=== PATIENT | female | born 1950 | race American Indian/Alaskan Native ===

== ENCOUNTER 2017-02-04 08:34 | Outpatient (CLI) | payer MEDICARE ==
--- NOTE | 2017-02-04 14:38 | Mammography Report ---
BILATERAL DIGITAL SCREENING MAMMOGRAM with CAD: 02/04/17 08:34:00 CLINICAL: Routine screening. COMPARISON: 08/16/14 FINDINGS: There are a few bilateral scattered areas of fibroglandular density.No mass, architectural distortion or suspicious calcifications. IMPRESSION: No mammographic evidence of malignancy. BI-RADS CATEGORY: 1 -- Negative RECOMMENDATION: Routine mammographic screening in one year. COMMENT: Patient follow-up letters are generated by our [employer] application.
== END 2017-02-04 08:35 | disposition home or self-care (01) ==
LOC: SPVWC 08:34
PROVIDERS: ATTEND Hospitalist
DX: Z12.31 Encounter for screening mammogram for malignant neoplasm of breast (principal)
CPT/HCPCS: 77067; G0202

== ENCOUNTER 2017-08-01 08:00 | Emergency (ER) | payer MEDICARE ==
[2017-08-01 08:05] VITALS: BP 128/55
--- NOTE | 2017-08-01 08:26 | Emergency Department Report ---
ED Back Pain/Injury HPI - General Chief Complaint: Back Pain/Injury Stated Complaint: BACK/LEG/FOOT PAIN Time Seen by Provider: 08/01/17 08:09 Source: patient Limitations: No Limitations - History of Present Illness Initial Comments: This is a 67 y.o. female that presents with low back pain for 2 days and chronic feet pain. Patient reports back pain started 2-3 days ago and is non- radiating. She is having dysuria along with back pain and started taking AZO to help with no improvement of symptoms. She went to PCP 06/08/2017 and was told to watch A1c. They talked about improving diet but they never told her if she have diabetes or not. She is worried foot pain is associated with diabetes because the pain is increased over the past week. She is soaking feet daily in epson salt, which relieve pain but it always return. Describes foot pain as numbness not sharp or dull pain. The pain is worse in the morning and on the plantar area of both feet. When she wake up in the morning she have to shake legs and sit for 2-3 minutes prior to standing. She is taking her ibuprofen 800 mg pills with minimal improvement of pain. Denies swelling, redness, falls/ injury, frequency, urgency, or discharge. MD Complaint: back pain -: days(s) (2 days for low back pain), week(s) (1 week) Similar Symptoms Previously: Yes (low back pain and dysuria for UTI, years ago) Place: home Radiation: none Severity: moderate Severity scale (0 -10): 6 Quality: burning (with voids), tingling (both feet) Consistency: intermittent Improves With: immobilization Worsens With: movement, walking Associated Symptoms: difficulty walking. denies: confusion, weakness, chest pain, numbness, cough, difficulty urinating, diaphoresis, incontinence, fever/ chills, constipation, headaches, abdominal pain, loss of appetite, malaise, nausea/vomiting, rash, seizure, shortness of breath, syncope Treatments Prior to Arrival: NSAIDS (She is taking ibuprofen 800 mg) - Related Data Previous Rx's Medication Instructions Recorded Last Taken Type Phenazopyridine [Pyridium] 200 mg PO TID 2 Days #6 tab 08/01/17 Unknown Rx Sulfamethoxazole/Trimethoprim 1 each PO BID 3 Days #6 tablet 08/01/17 Unknown Rx [Bactrim DS TAB] traMADol [Ultram 50 MG tab] 50 mg PO Q6HR PRN #20 tablet 08/01/17 Unknown Rx Allergies Allergy/AdvReac Type Severity Reaction Status Date / Time No Known Allergies Allergy Unverified 08/01/17 08:01 ED Review of Systems ROS: Stated complaint: BACK/LEG/FOOT PAIN Other details as noted in HPI Constitutional: denies: chills, fever Respiratory: denies: cough, orthopnea, shortness of breath, wheezing Cardiovascular: denies: chest pain, palpitations, edema, syncope Endocrine: no symptoms reported Gastrointestinal: denies: abdominal pain, nausea, diarrhea Genitourinary: dysuria. denies: urgency, frequency, hematuria, discharge Musculoskeletal: back pain (low back pain, bilaterally). denies: joint swelling , arthralgia Neurological: numbness (both feet). denies: headache, weakness, paresthesias, abnormal gait Psychiatric: denies: anxiety, depression ED Past Medical Hx - Past Medical History high cholesterol ED Back Pain Physical Exam - Exam General: Vital signs noted. No distress. Alert and acting appropriately. Back/Abdomen: Yes Flank Tenderness (CVA tenderness bilaterally), No Abdominal Tenderness, No Perithoracic Tenderness, No Perilumbar Tenderness, No Sacroiliac Tenderness, No Straight Leg Raise Pain Neuro: Yes Normal Sensation, Yes Normal DTR's, Yes Normal Gait, No Motor Weakness ED Course Vital Signs 08/01/17 08:01 Temperature 98.3 F Pulse Rate 82 Respiratory 16 Rate Blood Pressure 128/55 O2 Sat by Pulse 98 Oximetry Ed Back Pain Tests - Tests Tests: Abnormal UA (positve nitrates, WBC 11.0) ED Medical Decision Making - Lab Data Result diagrams: 08/01/17 08:56 08/01/17 08:56 - Medical Decision Making This is a 67 y.o. female that presents with bilateral low back pain for 2 days and numbness to feet for 1 week. Patient was examined by me. Obtained CBC, CMP, TSH, CRP, & UA. UA positive for acute cystitis. All other labs WNL, pending TSH. Discussed results with patient. F/U with PCP for further evaluation of neuropathy. Start tramadal 50 mg po q6h PRN for neuropathy, bactrim DS 1 tab po bid x 3 days, pyridium. Discharged home in stable condition. Critical care attestation.: If time is entered above; I have spent that time in minutes in the direct care of this critically ill patient, excluding procedure time. ED Disposition Clinical Impression: Acute cystitis with hematuria, Neuropathy Disposition: TO HOME OR SELFCARE Is pt being admited?: No Does the pt Need Aspirin: No Condition: Stable Instructions: Urinary Tract Infection in Women (ED), Dysuria (ED), Paresthesia (ED) Additional Instructions: Avoid drinking alcohol for 24 hours after completion of medication. Increase fluid intake to aid in flushing kidneys. Follow up with primary care provider in 2-3 days for management of neuropathy. Prescriptions: Phenazopyridine [Pyridium] 200 mg PO TID 2 Days #6 tab Sulfamethoxazole/Trimethoprim [Bactrim DS TAB] 1 each PO BID 3 Days #6 tablet traMADol [Ultram 50 MG tab] 50 mg PO Q6HR PRN #20 tablet PRN Reason: Pain Referrals: TYRA OWENS MD [Referring] - 3-5 Days [facility] [Provider Group] - 3-5 Days [facility] [Provider Group] - 3-5 Days Time of Disposition: 10:45 Print Language: GREEK
[2017-08-01 09:06] LABS: Hematocrit 37.7 % (30.3-42.9); Hemoglobin 12.8 gm/dl (10.1-14.3); Mean Corpuscular HGB Conc 34 % (30-34); Mean Corpuscular Hemoglobin 30 pg (28-32); Mean Corpuscular Volume 87 fl (79-97); Platelet Count 192 K/mm3 (140-440); Red Blood Count 4.31 M/mm3 (3.65-5.03); Red Cell Distribution Width 14.4 % (13.2-15.2)
[2017-08-01 09:25] LABS: Bacteria,Urine 4+ /HPF (Negative); Bilirubin,Urine NEG (Negative); Blood,Urine MOD (Negative); Color,Urine Red (Yellow); Mucus,Urine FEW /HPF; Protein,Urine <15 mg/dL mg/dL (Negative)
[2017-08-01 09:36] LABS: Albumin 4.3 g/dL (3.9-5); C-Reactive Protein 0.6 mg/dL (0.00-1.30); Calcium 9.2 mg/dL (8.4-10.2)
[2017-08-01 09:36] LABS: RBC,Urine > 182.0 /HPF (0.0-6.0)
== END 2017-08-01 10:51 | disposition home or self-care (01) ==
LOC: ED 08:00
DX: N30.01 Acute cystitis with hematuria (principal); G62.9 Polyneuropathy, unspecified; E78.00 Pure hypercholesterolemia, unspecified
CPT/HCPCS: 36415; 80053; 81001; 82607; 84443; 85027; 86140; 99283

== ENCOUNTER 2018-11-23 05:53 | Day surgery (SDC) | payer MEDICARE, OTHER ==
[2018-11-23] MEDS ORDERED: NACL 0.9% 500 ML 500 ML IV SCH (07:00)
[2018-11-23 07:08] LABS: Basophils # (Auto) 0.1 K/mm3 (0.0-0.1); Basophils % (Auto) 0.9 % (0.0-1.8); Eosinophils # (Auto) 0.5 K/mm3 (0.0-0.4); Eosinophils % (Auto) 7.4 % (0.0-4.3); Hematocrit 37.1 % (30.3-42.9); Hemoglobin 12.6 gm/dl (10.1-14.3); Lymphocytes # (Auto) 2.4 K/mm3 (1.2-5.4); Lymphocytes % (Auto) 34.4 % (13.4-35.0); Mean Corpuscular HGB Conc 34 % (30-34); Mean Corpuscular Volume 87 fl (79-97); Monocytes # (Auto) 0.5 K/mm3 (0.0-0.8); Monocytes % (Auto) 6.8 % (0.0-7.3); Platelet Count 177 K/mm3 (140-440); Red Blood Count 4.27 M/mm3 (3.65-5.03); Red Cell Distribution Width 14.3 % (13.2-15.2)
[2018-11-23 07:19] LABS: INR 1.08 (0.87-1.13)
[2018-11-23 07:20] LABS: BUN/Creatinine Ratio 12; Blood Urea Nitrogen 12 mg/dL (7-17); Calcium 9.3 mg/dL (8.4-10.2); Hemolysis Index 2
[2018-11-23] MEDS ORDERED: HEPARIN 10,000 UNITS/10 ML ONE (08:20)
[2018-11-23] MEDS ORDERED: HEPARIN/NS 5000 UNIT/500ML(CATH LAB) 1,000 ML IR ONE (08:20)
[2018-11-23] MEDS ORDERED: SUBLIMAZE ONE (08:21)
[2018-11-23] MEDS ORDERED: NITROGLYCERIN SYRINGE 3 ML ONE (08:21)
[2018-11-23] MEDS ORDERED: VERSED ONE (08:21)
[2018-11-23] MEDS ORDERED: XYLOCAINE 2% INFILTRATI ONE (08:21)
[2018-11-23] MEDS ORDERED: CALAN ONE (08:21)
--- NOTE | 2018-11-23 11:33 | Cardiac Catherization Report ---
REFERRING PHYSICIAN: Dr. Ragsdale. INDICATIONS: Left heart catheterization. The patient is a pleasant 68-year-old female with multiple risk factors including previous CAD and PCI, presents here for left heart catheterization due to abnormal stress test and symptoms, on antianginal medications. Risks, benefits and alternatives were discussed at length prior to obtaining informed consent. PROCEDURE IN DETAIL: The patient was brought to the labor relations manager in a postabsorptive state, prepped and draped in sterile fashion. A 2 mL of 2% lidocaine used to anesthetize the right wrist. A standard 6-Pashto hydrophilic sheath used to cannulate the right radial artery via modified Seldinger technique. All exchanges performed to exchange a J-tip guidewire. JL3.5 catheter used to engage the left main. No dampening or ventricularization. Cineangiography performed in multiple projections. JR4 catheter used to cross the aortic valve under fluoroscopic guidance. Left ventriculography performed in 30 CHAVEZ and 30 SETSWANA projections via hand injections, catheter flushed. Manual pullback performed with continuous pressure monitoring. Catheter used to engage the right coronary. No dampening or ventricularization. Cineangiography performed in multiple projections. JR4 catheter was used to cross the aortic valve under fluoroscopic guidance. Left ventriculography performed in 30 CHAVEZ and 30 SETSWANA projections via hand injections, catheter flushed. Manual pullback performed with continuous pressure monitoring. Catheter used to engage the right coronary. No dampening or ventricularization. Cineangiography performed in multiple projections. Next, catheter removed from the body of wire, sheath removed. Manual pressure used to achieve hemostasis. I directly supervised the administration of moderate sedation with Versed and fentanyl from 8:44-9:05 a.m. There were no immediate complications identified. DATA: The patient remained in normal sinus rhythm throughout the procedure. Aortic pressure is 140/80, LV pressure is 140. LVP of 18 mmHg. Left ventriculography reveals normal systolic performance with estimated ejection fraction of 55-60%. No evidence of aortic stenosis. CORONARY ANATOMY: It is a right dominant system. Right coronary is a moderate-sized vessel, courses AV groove, distally bifurcates in the posterior and posterolateral branches. No discrete stenosis noted. There is a stent in the mid right coronary. It is patent with minimal in-stent restenosis. Left main without significant disease, bifurcates left anterior descending and left circumflex. Left circumflex is moderate-sized vessel, courses AV groove. No significant disease identified. Scattered luminal irregularities. LAD is a moderate-sized vessel, courses anterior intergroove, wraps around the apex, scattered luminal irregularities, but no significant disease noted. CONCLUSIONS: 1. No angiographic evidence of significant epicardial coronary disease in this right dominant system. A. Patent mid right coronary stent with minimal in-stent restenosis. 2. Normal left ventricular systolic performance with estimated ejection fraction of 55-60%. 3. No evidence of aortic stenosis. 4. Normal LVEDP. Recommend risk factor modification. Primary and secondary prevention measures. Standard radial care. Follow up with Dr. Ragsdale in the office. Results of procedure explained in length to the patient and family. All questions and concerns were addressed. JOB# [id number] TRUDY/ARABELLA
[2018-11-23 12:30] VITALS: BP 131/76
--- NOTE | 2018-11-23 13:52 | Short Stay Summary ---
Short Stay Documentation Date of service: 11/23/18 - History H&P: obtained from office - Allergies and Medications Current Medications: Allergies No Known Allergies Allergy (Unverified 08/01/17 08:01) Home Medications Medication Instructions Recorded Confirmed Last Taken Type ALBUTEROL Inhaler (OR & NICU) 2 puff IH PRN PRN 11/23/18 11/23/18 Unknown History [ProAir HFA Inhaler] Aspirin [Adult Aspirin] 81 mg PO DAILY 11/23/18 11/23/18 11/23/18 06:30 History 81mg Losartan [Cozaar] 100 mg PO QDAY 11/23/18 11/23/18 11/23/18 06:30 History 100mg Metoprolol [Lopressor TAB] 50 mg PO DAILY 11/23/18 11/23/18 11/22/18 History Montelukast [Singulair] 10 mg PO DAILY 11/23/18 11/23/18 11/22/18 History Omeprazole 20 mg PO DAILY 11/23/18 11/23/18 11/22/18 History Pravastatin [Pravachol] 40 mg PO QHS 11/23/18 11/23/18 11/22/18 History - Brief post op/procedure progress note Date of procedure: 11/23/18 Pre-op diagnosis: abnormal stress test Post-op diagnosis: same Procedure: C - see dictated cath report Anesthesia: local Estimated blood loss: none Condition: stable - Disposition Condition at discharge: Good Disposition: [id number] TO HOME OR SELFCARE - Discharge Diagnoses (1) CAD (coronary artery disease) Status: Chronic (2) Stented coronary artery Status: Chronic Short Stay Discharge Plan Activity: advance as tolerated Wound: open to air, keep clean and dry, per your surgeon's advice Follow up with: CHAZ FINE MD [Primary Care Provider] - 7 Days TAL CARLSON MD [Staff Physician] - 7 Days Forms: CardCath PCI D/C Instructions
== END 2018-11-23 12:58 | disposition home or self-care (01) ==
LOC: CATHLABREC 05:53
PROVIDERS: ATTEND Internal Medicine
DX: I25.10 Atherosclerotic heart disease of native coronary artery without angina pectoris (principal); R94.39 Abnormal result of other cardiovascular function study; T82.855A Stenosis of coronary artery stent, initial encounter; E78.00 Pure hypercholesterolemia, unspecified; I10 Essential (primary) hypertension; J45.909 Unspecified asthma, uncomplicated; M19.90 Unspecified osteoarthritis, unspecified site; Z87.440 Personal history of urinary (tract) infections; Z79.899 Other long term (current) drug therapy; Z79.82 Long term (current) use of aspirin; Z95.5 Presence of coronary angioplasty implant and graft; Z98.890 Other specified postprocedural states; Z98.891 History of uterine scar from previous surgery; Z86.73 Personal history of transient ischemic attack (TIA), and cerebral infarction without residual deficits; Y83.8 Other surgical procedures as the cause of abnormal reaction of the patient, or of later complication, without mention of misadventure at the time of the procedure; Y92.89 Other specified places as the place of occurrence of the external cause
CPT/HCPCS: 36415; 80048; 85025; 85610; 85730; 93005; 93010; 93458; 99156; C1894; J1644; J2250; J3010; J7040; Q9967

== ENCOUNTER 2021-11-11 20:14 | Emergency (ER) | payer OTHER ==
--- NOTE | 2021-11-11 21:27 | Emergency Department Report ---
<ASHLEY LONG - Last Filed: 11/12/21 11:08> ED Altered Mental Status HPI - General Chief Complaint: Altered Mental Status Stated Complaint: AMS X 2 DAYS Time Seen by Provider: 11/11/21 21:07 - Related Data Home Medications Medication Instructions Recorded Confirmed Last Taken Albuterol Mdi (or & Nicu Only) 2 puff IH PRN PRN 11/23/18 11/23/18 Unknown [ProAir HFA Inhaler] Aspirin [Adult Aspirin] 81 mg PO DAILY 11/23/18 11/23/18 11/23/18 06:30 81 mg Losartan [Cozaar] 100 mg PO QDAY 11/23/18 11/23/18 11/23/18 06:30 100 mg Metoprolol [Lopressor TAB] 50 mg PO DAILY 11/23/18 11/23/18 11/22/18 Montelukast [Singulair] 10 mg PO DAILY 11/23/18 11/23/18 11/22/18 Omeprazole 20 mg PO DAILY 11/23/18 11/23/18 11/22/18 Pravastatin [Pravachol] 40 mg PO QHS 11/23/18 11/23/18 11/22/18 Allergies Allergy/AdvReac Type Severity Reaction Status Date / Time No Known Allergies Allergy Unverified 08/01/17 08:01 ED Past Medical Hx - Medications Home Medications: Home Medications Medication Instructions Recorded Confirmed Last Taken Type Albuterol Mdi (or & Nicu Only) 2 puff IH PRN PRN 11/23/18 11/23/18 Unknown History [ProAir HFA Inhaler] Aspirin [Adult Aspirin] 81 mg PO DAILY 11/23/18 11/23/18 11/23/18 06:30 History 81 mg Losartan [Cozaar] 100 mg PO QDAY 11/23/18 11/23/18 11/23/18 06:30 History 100 mg Metoprolol [Lopressor TAB] 50 mg PO DAILY 11/23/18 11/23/18 11/22/18 History Montelukast [Singulair] 10 mg PO DAILY 11/23/18 11/23/18 11/22/18 History Omeprazole 20 mg PO DAILY 11/23/18 11/23/18 11/22/18 History Pravastatin [Pravachol] 40 mg PO QHS 11/23/18 11/23/18 11/22/18 History ED Course - Reevaluation(s) Reevaluation #1: 11/12/21 11:09 I was to follow up on this patient who is receiving hydration for likely alcohol intoxication. I checked on patient who is awake at this time and reports feeling much better after hydration with ivf and wanted to be discharge home. Pt denies any shakiness or REESE or any other modifying or associated factors for DT or alcohol withdrawal symptoms. - Lab Data Result diagrams: 11/11/21 21:50 11/11/21 21:50 ED Disposition Clinical Impression: Acute alcohol intoxication Alcohol intoxication Qualifiers: Complication of substance-induced condition: with unspecified complication Qualified Code(s): F10.929 - Alcohol use, unspecified with intoxication, unspecified Disposition: 01 HOME / SELF CARE / HOMELESS Is pt being admited?: No Does the pt Need Aspirin: No Condition: Stable Instructions: Alcohol Intoxication Additional Instructions: Take the medication as prescribed. Follow-up with your doctor or doctor/clinic provided. Return if symptoms worsen as indicated by your discharge instructio ns. Professional and Agency Contacts To help Res[facility] Crises (22/12) [place] Crisis Line: Suicide Prevention Line: Crisis Text Line: Text ``START to [phone] Emergency: 911 SUBSTANCE ABUSE PROGRAMS: Sober Living [facility]la: Location: [place], [place] [facility] Address: [address] [place] [address] [facility]: Address: [address] [place] [address] [facility]: Address: [address] [place] [address] [facility] Community: Address: [address] [place] [address] Referrals: PRIMARY CAREMD [Primary Care Provider] - 3-5 Days QUYNH YANEZ MD [Staff Physician] - 3-5 Days Time of Disposition: 11:11 <VANGIE ROGERS - Last Filed: 11/12/21 21:49> ED Altered Mental Status HPI - General Source: family, EMS, old records reviewed Mode of arrival: Stretcher Limitations: No Limitations - History of Present Illness Initial Comments: 71-year-old female with a past medical history of CAD with RCA stent, asthma, and elevated cholesterol presents to the hospital with complaints of alteration mental status since yesterday. As per triage note patient was found on the floor by her family member. Patient is drowsy during my assessment. She is arousable to voice and pleasant. She is oriented to place and year. She denies pain and cannot recall what happened prior to her arrival. I attempted to call phone numbers on the chart for collateral history however, there was no answer. Limited information available on past medical record as well ED Review of Systems ROS: Stated complaint: AMS X 2 DAYS Other details as noted in HPI Comment: All other systems reviewed and negative ED Past Medical Hx - Past Medical History Hx Hypertension: Yes Hx Heart Attack/AMI: Yes Hx Arthritis: Yes Hx Asthma: Yes Hx HIV: No Additional medical history: high cholesterol - Surgical History Hx Coronary Stent: Yes (cardiac stent) Additional Surgical History: cardiac stent "I think" - Social History Smoking Status: Never Smoker ED Physical Exam - General Limitations: No Limitations - Other Other exam information: General: No acute distress Head: Atraumatic Eyes: normal appearance, extraocular movements intact ENT: Moist mucous membranes Neck: Normal appearance, no midline tenderness, full range of motion Chest: Clear to auscultation bilaterally CV: Regular rate and rhythm Abdomen: Soft, normal bowel sounds, nontender, nondistended, no rebound or guarding, suprapubic vertical scar noted Back: Normal inspection, no tendon Extremity: Normal inspection, full range of motion Neuro: Drowsy but easily arousable. Oriented x3, no facial asymmetry, speech clear, no gross motor sensory deficit Psych: Appropriate behavior Skin: No rash ED Course Vital Signs 11/11/21 11/12/21 20:19 11:31 Temperature 98 F Pulse Rate 72 65 Respiratory 16 18 Rate Blood Pressure 146/78 168/83 [Right] O2 Sat by Pulse 96 97 Oximetry - Lab Data Result diagrams: 11/11/21 21:50 11/11/21 21:50 Lab Results 11/11/21 11/11/21 11/11/21 Range/Units 21:50 21:50 21:50 WBC 8.9 (4.5-11.0) K/mm3 RBC 3.96 (3.65-5.03) M/mm3 Hgb 13.2 (10.1-14.3) gm/dl Hct 39.2 (30.3-42.9) % MCV 99 H (79-97) fl MCH 33 H (28-32) pg MCHC 34 (30-34) % RDW 14.8 (13.2-15.2) % Plt Count 188 (140-440) K/mm3 Lymph % (Auto) 36.5 H (13.4-35.0) % [place] % (Auto) 6.8 (0.0-7.3) % Eos % (Auto) 4.7 H (0.0-4.3) % Baso % (Auto) 0.6 (0.0-1.8) % Lymph # (Auto) 3.2 (1.2-5.4) K/mm3 [place] # (Auto) 0.6 (0.0-0.8) K/mm3 Eos # (Auto) 0.4 (0.0-0.4) K/mm3 Baso # (Auto) 0.1 (0.0-0.1) K/mm3 Seg Neutrophils % 51.4 (40.0-70.0) % Seg Neutrophils # 4.6 (1.8-7.7) K/mm3 Sodium 145 (137-145) mmol/L Potassium 4.6 (3.6-5.0) mmol/L Chloride 107.1 H (98-107) mmol/L Carbon Dioxide 18 L (22-30) mmol/L Anion Gap 25 mmol/L BUN 31 H (7-17) mg/dL Creatinine 1.9 H (0.6-1.2) mg/dL Estimated GFR 32 ml/min BUN/Creatinine Ratio 16 % Glucose 89 (65-100) mg/dL POC Glucose (70-105) mg/dL Calcium 9.5 (8.4-10.2) mg/dL Magnesium 1.70 (1.7-2.3) mg/dL Total Bilirubin < 0.20 (0.1-1.2) mg/dL AST 30 (5-40) units/L ALT 15 (7-56) units/L Alkaline Phosphatase 79 (35-129) units/L Ammonia 43.0 (25-60) umol/L Total Creatine Kinase 105 (30-135) units/L CK-MB (CK-2) 2.0 (0.0-4.0) ng/mL CK-MB (CK-2) Rel Index 1.9 (0-4) Troponin T < 0.010 (0.00-0.029) ng/mL Total Protein 7.2 (6.3-8.2) g/dL Albumin 4.5 (3.9-5) g/dL Albumin/Globulin Ratio 1.7 % TSH (0.270-4.200) mlU/mL Free T4 (0.76-1.46) ng/dL Urine Color (Yellow) Urine Turbidity (Clear) Urine pH (5.0-7.0) Ur Specific [place] (1.003-1.030) Urine Protein (Negative) mg/dL Urine Glucose (UA) (Negative) mg/dL Urine Ketones (Negative) mg/dL Urine Blood (Negative) Urine Nitrite (Negative) Urine Bilirubin (Negative) Urine Urobilinogen (<2.0) mg/dL Ur Leukocyte Esterase (Negative) Urine WBC (Auto) (0.0-6.0) /HPF Urine RBC (Auto) (0.0-6.0) /HPF U Epithel Cells (Auto) (0-13.0) /HPF Urine Bacteria (Auto) (Negative) /HPF Urine Mucus /HPF Plasma/Serum Alcohol (0-0.07) % 11/11/21 11/11/21 11/11/21 Range/Units 21:50 21:54 22:30 WBC (4.5-11.0) K/mm3 RBC (3.65-5.03) M/mm3 Hgb (10.1-14.3) gm/dl Hct (30.3-42.9) % MCV (79-97) fl MCH (28-32) pg MCHC (30-34) % RDW (13.2-15.2) % Plt Count (140-440) K/mm3 Lymph % (Auto) (13.4-35.0) % [place] % (Auto) (0.0-7.3) % Eos % (Auto) (0.0-4.3) % Baso % (Auto) (0.0-1.8) % Lymph # (Auto) (1.2-5.4) K/mm3 [place] # (Auto) (0.0-0.8) K/mm3 Eos # (Auto) (0.0-0.4) K/mm3 Baso # (Auto) (0.0-0.1) K/mm3 Seg Neutrophils % (40.0-70.0) % Seg Neutrophils # (1.8-7.7) K/mm3 Sodium (137-145) mmol/L Potassium (3.6-5.0) mmol/L Chloride (98-107) mmol/L Carbon Dioxide (22-30) mmol/L Anion Gap mmol/L BUN (7-17) mg/dL Creatinine (0.6-1.2) mg/dL Estimated GFR ml/min BUN/Creatinine Ratio % Glucose (65-100) mg/dL POC Glucose 84 (70-105) mg/dL Calcium (8.4-10.2) mg/dL Magnesium (1.7-2.3) mg/dL Total Bilirubin (0.1-1.2) mg/dL AST (5-40) units/L ALT (7-56) units/L Alkaline Phosphatase (35-129) units/L Ammonia (25-60) umol/L Total Creatine Kinase (30-135) units/L CK-MB (CK-2) (0.0-4.0) ng/mL CK-MB (CK-2) Rel Index (0-4) Troponin T (0.00-0.029) ng/mL Total Protein (6.3-8.2) g/dL Albumin (3.9-5) g/dL Albumin/Globulin Ratio % TSH 0.298 (0.270-4.200) mlU/mL Free T4 1.27 (0.76-1.46) ng/dL Urine Color (Yellow) Urine Turbidity (Clear) Urine pH (5.0-7.0) Ur Specific [place] (1.003-1.030) Urine Protein (Negative) mg/dL Urine Glucose (UA) (Negative) mg/dL Urine Ketones (Negative) mg/dL Urine Blood (Negative) Urine Nitrite (Negative) Urine Bilirubin (Negative) Urine Urobilinogen (<2.0) mg/dL Ur Leukocyte Esterase (Negative) Urine WBC (Auto) (0.0-6.0) /HPF Urine RBC (Auto) (0.0-6.0) /HPF U Epithel Cells (Auto) (0-13.0) /HPF Urine Bacteria (Auto) (Negative) /HPF Urine Mucus /HPF Plasma/Serum Alcohol 0.37 H (0-0.07) % 11/12/ Range/Units 07:40 WBC (4.5-11.0) K/mm3 RBC (3.65-5.03) M/mm3 Hgb (10.1-14.3) gm/dl Hct (30.3-42.9) % MCV (79-97) fl MCH (28-32) pg MCHC (30-34) % RDW (13.2-15.2) % Plt Count (140-440) K/mm3 Lymph % (Auto) (13.4-35.0) % [place] % (Auto) (0.0-7.3) % Eos % (Auto) (0.0-4.3) % Baso % (Auto) (0.0-1.8) % Lymph # (Auto) (1.2-5.4) K/mm3 [place] # (Auto) (0.0-0.8) K/mm3 Eos # (Auto) (0.0-0.4) K/mm3 Baso # (Auto) (0.0-0.1) K/mm3 Seg Neutrophils % (40.0-70.0) % Seg Neutrophils # (1.8-7.7) K/mm3 Sodium (137-145) mmol/L Potassium (3.6-5.0) mmol/L Chloride (98-107) mmol/L Carbon Dioxide (22-30) mmol/L Anion Gap mmol/L BUN (7-17) mg/dL Creatinine (0.6-1.2) mg/dL Estimated GFR ml/min BUN/Creatinine Ratio % Glucose (65-100) mg/dL POC Glucose (70-105) mg/dL Calcium (8.4-10.2) mg/dL Magnesium (1.7-2.3) mg/dL Total Bilirubin (0.1-1.2) mg/dL AST (5-40) units/L ALT (7-56) units/L Alkaline Phosphatase (35-129) units/L Ammonia (25-60) umol/L Total Creatine Kinase (30-135) units/L CK-MB (CK-2) (0.0-4.0) ng/mL CK-MB (CK-2) Rel Index (0-4) Troponin T (0.00-0.029) ng/mL Total Protein (6.3-8.2) g/dL Albumin (3.9-5) g/dL Albumin/Globulin Ratio % TSH (0.270-4.200) mlU/mL Free T4 (0.76-1.46) ng/dL Urine Color Straw (Yellow) Urine Turbidity Clear (Clear) Urine pH 5.0 (5.0-7.0) Ur Specific [place] 1.006 (1.003-1.030) Urine Protein <15 mg/dl (Negative) mg/dL Urine Glucose (UA) Neg (Negative) mg/dL Urine Ketones Neg (Negative) mg/dL Urine Blood Mod (Negative) Urine Nitrite Neg (Negative) Urine Bilirubin Neg (Negative) Urine Urobilinogen < 2.0 (<2.0) mg/dL Ur Leukocyte Esterase Neg (Negative) Urine WBC (Auto) 1.0 (0.0-6.0) /HPF Urine RBC (Auto) 5.0 (0.0-6.0) /HPF U Epithel Cells (Auto) 3.0 (0-13.0) /HPF Urine Bacteria (Auto) 3+ (Negative) /HPF Urine Mucus Few /HPF Plasma/Serum Alcohol (0-0.07) % - EKG Data -: EKG Interpreted by Mo EKG shows normal: sinus rhythm, ST-T waves (nonspecific t abnlormalities) Rate: normal - Radiology Data Radiology results: report reviewed CT head/brain wo con INDICATION / CLINICAL INFORMATION: 71 years Female; found on floor, ams. TECHNIQUE: Routine CT head without contrast. All CT scans at this location are performed using CT dose reduction for ALARA by means of automated exposure control. COMPARISON: None. FINDINGS: BRAIN / INTRACRANIAL CONTENTS: The motion degrades the image quality. However, there is encephalomalacia along the left frontoparietal junction most consistent with old infarct. There otherwise appears to be mild microvascular angiopathy and mild cerebral atrophy. The ventricular system is correspondingly appropriate in size and configuration. There is somewhat linear relative increased attenuation along the lateral left frontal lobe which appears to be vascular in origin given the configuration. Otherwise, there is no clear CT evidence of acute intracranial hemorrhage or mass effect. ORBITS: No significant abnormality of visualized orbits. SINUSES / MASTOIDS: There is minimal mucosal thickening involving left ethmoid air cells and visualized left maxillary sinus. CRANIOCERVICAL JUNCTION: No significant abnormality. ADDITIONAL FINDINGS: There is incidental mild hyperostosis along the inner table of the left frontoparietal calvarium. IMPRESSION: 1. The study is limited by motion. However, there is old the infarct along the left frontoparietal junction as detailed above. 2. There is relative increased attenuation along the lateral left frontal lobe with linear configuration which appears to be vascular in origin. Otherwise, there is no clear CT evidence of acute intracranial hemorrhage. CT cervical spine wo con INDICATION / CLINICAL INFORMATION: 71 years Female; found on floor. TECHNIQUE: Axial CT images of the cervical spine were obtained. Sagittal and coronal reformatted images were produced. All CT scans at this location are performed using CT dose reduction for ALARA by means of automated exposure control. COMPARISON: None available. FINDINGS: POST-SURGICAL CHANGES: None. ALIGNMENT: There is slight reversal of the cervical lordosis without ossific and spondylolisthesis. VERTEBRAE: There is moderate disc space narrowing with associated endplate changes at C4-5. Milder findings are noted anteriorly at C5-6. There is no clear CT evidence of acute fracture involving the cervical spine. INTRAVERTEBRAL DISCS: The spondylosis at C3-4 appears to efface ventral subarachnoid space. There is mild left foraminal narrowing. The spondylosis C4-5 also effaces the subarachnoid space. There is marked foraminal narrowing bilaterally. The right-sided spondylosis at C5-6 appears to slightly encroach on the right ventral cord. There is moderate left and mild right foraminal narrowing. There is moderate to marked right foraminal n arrowing at C6-7. The spondylosis also encroaches on the right lateral recess. ADDITIONAL FINDINGS: No prevertebral soft tissue fluid collections are identified. IMPRESSION: 1. There is no CT evidence of acute fracture involving cervical spine 2. There are multilevel degenerative changes as detailed above. CHEST 1 VIEW 11/11/2021 9:11 PM INDICATION / CLINICAL INFORMATION: ams, found on floor. COMPARISON: None available. FINDINGS: SUPPORT DEVICES: None. HEART / MEDIASTINUM: No significant abnormality. LUNGS / PLEURA: No significant pulmonary abnormality. No significant pleural effusion. No pneumothorax. ADDITIONAL FINDINGS: No significant additional findings. IMPRESSION: 1. No acute abnormality of the chest. - Medical Decision Making 71-year-old presents to the hospital with alteration mental status. Work reveals acute alcohol intoxication. Imaging test including CT chest x-ray unremarkable. Patient treated with banana bag, IV fluids, and observation. Plan to discharge when clinically sober. Patient will need reassessment to ensure no withdrawal symptoms prior to discharge. Case will be signed out to oncoming provider Dr. Long - Differential Diagnosis Syncope, encephalopathy, ICH, CVA Critical Care Time: No Critical care attestation.: If time is entered above; I have spent that time in minutes in the direct care of this critically ill patient, excluding procedure time. ED Disposition Is pt being admited?: No Does the pt Need Aspirin: No
--- NOTE | 2021-11-11 22:02 | Cat Scan Report ---
CT head/brain wo con INDICATION / CLINICAL INFORMATION: 71 years Female; found on floor, ams. TECHNIQUE: Routine CT head without contrast. All CT scans at this location are performed using CT dos e reduction for ALARA by means of automated exposure control. COMPARISON: None. FINDINGS: BRAIN / INTRACRANIAL CONTENTS: The motion degrades the image quality. However, there is encephalomala alicja along the left frontoparietal junction most consistent with old infarct. There otherwise appears to be mild microvascular angiopathy and mild cerebral atrophy. The ventricular system is correspondin gly appropriate in size and configuration. There is somewhat linear relative increased attenuation along the lateral left frontal lobe which vargas ears to be vascular in origin given the configuration. Otherwise, there is no clear CT evidence of ac [place] intracranial hemorrhage or mass effect. ORBITS: No significant abnormality of visualized orbits. SINUSES / MASTOIDS: There is minimal mucosal thickening involving left ethmoid air cells and visualiz ed left maxillary sinus. CRANIOCERVICAL JUNCTION: No significant abnormality. ADDITIONAL FINDINGS: There is incidental mild hyperostosis along the inner table of the left frontopa rietal calvarium. IMPRESSION: 1. The study is limited by motion. However, there is old the infarct along the left frontoparietal ju nction as detailed above. 2. There is relative increased attenuation along the lateral left frontal lobe with linear configurat ion which appears to be vascular in origin. Otherwise, there is no clear CT evidence of acute intracr anial hemorrhage. Signer Name: Clarence Blackwell MD Signed: 11/11/2021 9:58 PM Workstation Name: [id number]
--- NOTE | 2021-11-11 22:07 | Cat Scan Report ---
CT cervical spine wo con INDICATION / CLINICAL INFORMATION: 71 years Female; found on floor. TECHNIQUE: Axial CT images of the cervical spine were obtained. Sagittal and coronal reformatted images were pr oduced. All CT scans at this location are performed using CT dose reduction for ALARA by means of aut omated exposure control. COMPARISON: None available. FINDINGS: POST-SURGICAL CHANGES: None. ALIGNMENT: There is slight reversal of the cervical lordosis without ossific and spondylolisthesis. VERTEBRAE: There is moderate disc space narrowing with associated endplate changes at C4-5. Milder fi ndings are noted anteriorly at C5-6. There is no clear CT evidence of acute fracture involving the ce rvical spine. INTRAVERTEBRAL DISCS: The spondylosis at C3-4 appears to efface ventral subarachnoid space. There is mild left foraminal narrowing. The spondylosis C4-5 also effaces the subarachnoid space. There is mar ked foraminal narrowing bilaterally. The right-sided spondylosis at C5-6 appears to slightly encroach on the right ventral cord. There is moderate left and mild right foraminal narrowing. There is moderate to marked right foraminal narrowi ng at C6-7. The spondylosis also encroaches on the right lateral recess. ADDITIONAL FINDINGS: No prevertebral soft tissue fluid collections are identified. IMPRESSION: 1. There is no CT evidence of acute fracture involving cervical spine 2. There are multilevel degenerative changes as detailed above. Signer Name: Clarence Blackwell MD Signed: 11/11/2021 10:03 PM Workstation Name: [id number]
[2021-11-11 22:18] LABS: Hematocrit 39.2 % (30.3-42.9); Hemoglobin 13.2 gm/dl (10.1-14.3); Mean Corpuscular Volume 99 fl (79-97); Red Blood Count 3.96 M/mm3 (3.65-5.03)
[2021-11-11 22:19] LABS: Basophils # (Auto) 0.1 K/mm3 (0.0-0.1); Basophils % (Auto) 0.6 % (0.0-1.8); Eosinophils # (Auto) 0.4 K/mm3 (0.0-0.4); Eosinophils % (Auto) 4.7 % (0.0-4.3); Lymphocytes # (Auto) 3.2 K/mm3 (1.2-5.4); Lymphocytes % (Auto) 36.5 % (13.4-35.0); Mean Corpuscular HGB Conc 34 % (30-34); Monocytes # (Auto) 0.6 K/mm3 (0.0-0.8); Monocytes % (Auto) 6.8 % (0.0-7.3); Platelet Count 188 K/mm3 (140-440); Red Cell Distribution Width 14.8 % (13.2-15.2)
[2021-11-11 22:25] LABS: Alanine Aminotransferase 15 units/L (7-56); Albumin 4.5 g/dL (3.9-5); BUN/Creatinine Ratio 16; Blood Urea Nitrogen 31 mg/dL (7-17); Calcium 9.5 mg/dL (8.4-10.2); Hemolysis Index 134
[2021-11-11 22:36] LABS: Free T4 (Free Thyroxine) 1.27 ng/dL (0.76-1.46)
--- NOTE | 2021-11-11 22:37 | XRay Report ---
CHEST 1 VIEW 11/11/2021 9:11 PM INDICATION / CLINICAL INFORMATION: ams, found on floor. COMPARISON: None available. FINDINGS: SUPPORT DEVICES: None. HEART / MEDIASTINUM: No significant abnormality. LUNGS / PLEURA: No significant pulmonary abnormality. No significant pleural effusion. No pneumothora x. ADDITIONAL FINDINGS: No significant additional findings. IMPRESSION: 1. No acute abnormality of the chest. Signer Name: Martin Foster MD Signed: 11/11/2021 10:33 PM Workstation Name: [id number]
[2021-11-11] MEDS ORDERED: THIAMINE 100 MG, FOLIC ACID 1 MG, MULTIPLE VITAMIN INJ, ADULT 10 ML in SODIUM CHLORIDE ... IV ONE (23:50)
[2021-11-12] MEDS ORDERED: SODIUM CHLORIDE 0.9% 1000 ML 1,000 ML IV ONE (01:03)
[2021-11-12 08:10] LABS: Bilirubin,Urine NEG (Negative); Blood,Urine MOD (Negative); Color,Urine Straw (Yellow); Protein,Urine <15 mg/dL mg/dL (Negative); Urobilinogen,Urine < 2.0 mg/dL (<2.0)
[2021-11-12 08:18] LABS: Bacteria,Urine 3+ /HPF (Negative); Mucus,Urine FEW /HPF
--- NOTE | 2021-11-12 10:06 | Electrocardiograph Report ---
[facility] Test Date: 2021-11-11 Test Time: 22:00:13 Pat Name: JULIA GARCIA Department: Room: Gender: F Ems Instructor: [place] : 1950 Requested By: VANGIE ROGERS Order Number: [id number] Reading MD: Frederic Pitt Measurements Intervals [place] Rate: 78 P: 51 CO: 181 QRS: 69 QRSD: 89 T: -59 QT: 392 QTc: 447 Interpretive Statements Sinus rhythm Nonspecific T abnormalities, lateral leads No previous ECG available for comparison Electronically Signed On 11-12-2021 10:06:33 EDT by Frederic Pitt
[2021-11-12 11:32] VITALS: BP 168/83
== END 2021-11-12 11:33 | disposition home or self-care (01) ==
LOC: ED 20:14
DX: F10.129 Alcohol abuse with intoxication, unspecified (principal); I11.9 Hypertensive heart disease without heart failure; J45.909 Unspecified asthma, uncomplicated; M19.90 Unspecified osteoarthritis, unspecified site; Z21 Asymptomatic human immunodeficiency virus [HIV] infection status; E78.00 Pure hypercholesterolemia, unspecified; Z98.890 Other specified postprocedural states
CPT/HCPCS: 36415; 70450; 71045; 72125; 80053; 81001; 82140; 82550; 82553; 82962; 83735; 84439; 84443; 84484; 85025; 93005; 96361; 96365; 99285; J3411; J3490; J7030; 80320; G0480